=== PATIENT | male | born 1955 | race Caucasian/White ===

== ENCOUNTER 2023-09-09 07:45 | Observation (INO) ==
--- NOTE | 2023-07-31 11:08 | PAT Medication Instructions ---
Medication Instructions Date of Service July 31, 2023 Home Medications atorvastatin 20 mg tablet 20 mg PO QAM ergocalciferol (vitamin D2) 1,250 mcg (50,000 unit) capsule (Vitamin D2) 1,250 mcg PO WK hydrochlorothiazide 25 mg tablet 25 mg PO QAM levothyroxine 125 mcg tablet 125 mcg PO QAM magnesium 250 mg tablet 250 mg PO QAM omalizumab 300 mg/2 mL subcutaneous syringe (Xolair) 300 mg subcut MONTHLY pantoprazole 40 mg tablet,delayed release 40 mg PO QAM potassium chloride 20 mEq tablet,extended release(part/cryst) (Klor-Con M) 20 meq PO QAM ASK your prescriber and surgeon omalizumab 300 mg/2 mL subcutaneous syringe (Xolair) 300 mg subcut MONTHLY DO NOT take the morning of surgery ergocalciferol (vitamin D2) 1,250 mcg (50,000 unit) capsule (Vitamin D2) 1,250 mcg PO WK hydrochlorothiazide 25 mg tablet 25 mg PO QAM magnesium 250 mg tablet 250 mg PO QAM potassium chloride 20 mEq tablet,extended release(part/cryst) (Klor-Con M) 20 meq PO QAM Take morning of surgery With a small sip of water, OTHERWISE NOTHING TO EAT OR DRINK AFTER MIDNIGHT: atorvastatin 20 mg tablet 20 mg PO QAM levothyroxine 125 mcg tablet 125 mcg PO QAM pantoprazole 40 mg tablet,delayed release 40 mg PO QAM Other Notes If you have any questions please call us at [phone] or [phone] or [phone] or [phone]
--- NOTE | 2023-08-07 10:30 | Anesthesiology Consultation ---
Date of Service August 07, 2023 Assessment & Plan (1) Encounter for pre-operative examination: - Infectious disease screening: Per assessment on 08/07/23: No known infectious disease contacts or current infectious disease symptoms. No noted recent Covid positive test result. - Outpatient joint pathway: Per surgeon paperwork, plan for outpatient joint program. Patient seen at [facility] 08/07/23. Patient is an acceptable candidate to proceed as planned outpatient joint pathway pending perioperative course. Surgeon's office arranging post-op home management. - Patient acceptable risk for surgery pending surgeon-ordered PCP (Dr. Rufina Fagan, appt 08/13) and cardiology (Dr. Garcia/Gladis, appt 08/22) preop evaluations. Chart Review Chart Review: Patient seen in Pre Admission Testing Teaching & Discussion Pre-Anesthesia Teaching/Discussion Notes: Instructed NPO after midnight before surgery,except medications with 15 cc of water. Medication instructions provided according to the [facility] guidelines. History Surgery Operation Date: 09/09/23 09:10 Proposed Procedures p OP: Right Anterior Total Hip Replacement - Leoncio Escobar MD Height/Weight Height: 6 ft Weight: 95.1 kg Allergies Allergy/AdvReac Type Severity Reaction Status Date / Time No Known Allergies Allergy Verified 07/19/23 11:05 Medications Home Medications Medication Instructions Recorded Confirmed Last Taken atorvastatin 20 mg tablet 20 mg PO QAM 07/19/23 07/19/23 Unknown ergocalciferol (vitamin D2) 1,250 1,250 mcg PO WK 07/19/23 07/19/23 Unknown mcg (50,000 unit) capsule (Vitamin D2) hydrochlorothiazide 25 mg tablet 25 mg PO QAM 07/19/23 07/19/23 Unknown levothyroxine 125 mcg tablet 125 mcg PO QAM 07/19/23 07/19/23 Unknown magnesium 250 mg tablet 250 mg PO QAM 07/19/23 07/19/23 Unknown omalizumab 300 mg/2 mL 300 mg subcut MONTHLY 07/19/23 07/19/23 Unknown subcutaneous syringe (Xolair) pantoprazole 40 mg tablet,delayed 40 mg PO QAM 07/19/23 07/19/23 Unknown release potassium chloride 20 mEq 20 meq PO QAM 07/19/23 07/19/23 Unknown tablet,extended release(part/cryst) (Klor-Con M) Past Medical History Medical History Asthma Xolair injection monthly Barretts esophagus GERD (gastroesophageal reflux disease) Hx of colonic polyps Hx of squamous cell carcinoma (2020) Head Hyperlipidemia Hypertension Hypothyroidism Osteoarthritis Rheumatoid arthritis Hands - no meds Exercise / Class Metabolic Activity II 4-5 Yardwork/Stairs/Walk up hill (one FS: No CP, no SOB) Past Family History Family History Brother FHx: colon cancer, Onset Age: 61 FHx: esophageal cancer x2 brothers Other No family history of adverse response to anesthesia Past Surgical History Surgical History History of arthroscopy of left shoulder x2 History of arthroscopy of right shoulder x2 History of colonoscopy History of esophagogastroduodenoscopy (EGD) History of open reduction and internal fixation (ORIF) procedure right with hardware History of tonsillectomy Hx of squamous cell carcinoma excision (2020) S/P debridement right leg (post op infection) S/P hardware removal right leg S/P inguinal hernia repair right x3 Past Anesthesia History No Hx of Anesthesia Complications and No Family Hx of Anesthesia Complications History of PONV No Hx of PONV and No Hx of Motion Sickness Social History Smoking Status: Former smoker Do You Dip or Chew Tobacco: No Smoking End Date: Quit 1977 Hx Alcohol Use: No Hx Substance Use: No substance use type: does not use Review of Systems Patient denies chest pain, shortness of breath, dyspnea on exertion, fever, chills, cough, wheezing, palpitations. Physical Exam Vital Signs BP 133/81 P 65 TEMP 98.0 SP02 95%RA RESP 18 Physical Full cervical extension range of motion. Full TMJ range of motion. TMD 3.5 finger breaths Mallampati Score 2 Dentition: missing molars, + several upper veneers Lungs: clear throughout to auscultation Cardiac: regular rate and rhythm, no murmurs noted Spine: normal Carotid arteries: negative bruit Extremities: no LE edema Lab Results Anesthesia Preop Results Results Anesthesia Widget: WBC 10.38 K/ul (4.8-10.8) 08/07/23 Hgb 15.1 g/dl (14.0-18.0) 08/07/23 Hct 46.5 % (42.0-52.0) 08/07/23 Plt 295 K/uL (130-400) 08/07/23 Na 138 mmol/L (136-145) 08/07/23 K 4.5 mmol/L (3.5-5.1) 08/07/23 Cl 103 mmol/L (98-107) 08/07/23 CO2 27 mmol/L (21-32) 08/07/23 BUN 13 mg/dl (6-23) 08/07/23 Creat 0.90 mg/dl (0.6-1.4) 08/07/23 Glucose Level 101 mg/dl (70-99(Fasting)) H 08/07/23 PT 12.1 Seconds (9.0-12.0) H 08/07/23 PTT 30 Seconds (21-31) 08/07/23 INR 1.1 (0.9-1.1) 08/07/23 Urine Color Yellow 08/07/23 Urine Appearance Clear (Clear) 08/07/23 Urine pH 5.0 (4.5-7.5) 08/07/23 Urine Specific [place] 1.018 (1.000-1.030) 08/07/23 Urine Protein Negative (Negative) 08/07/23 Urine Glucose (UA) Negative (Negative) 08/07/23 Urine Ketones Negative (Negative) 08/07/23 Urine Blood Negative (Negative) 08/07/23 Urine Nitrite Negative (Negative) 08/07/23 Urine Bilirubin Negative (Negative) 08/07/23 Urine Urobilinogen Negative (Negative) 08/07/23 Urine Leukocyte Esterase Negative (Negative) 08/07/23 Blood Type AB Negative 08/07/23 Antibody Screen NEGATIVE 08/07/23 Testing Electrocardiogram Date: 08/07/23 SB at 57bpm. Chest X-Ray Date: 08/07/23 Findings: + NAD Echocardiogram Date: 11/27/22 EF 60-65%. Mild TR. Normal diastolic function.
--- NOTE | 2023-09-04 07:41 | History & Physical Report ---
Date of Service September 04, 2023 Assessment & Plan (1) Degenerative joint disease of right hip: Plan: Right total hip replacement direct anterior approach same-day surgery [facility] History of Present Illness Chief Complaint: Right hip pain Primary Care Provider: NO PCP Patient is a 68-year-old male with greater than 1 year history of right hip and low back pain. This is associated with decreased range of motion of the hip. He has trouble tying his shoe and sock. He has a positive limp and limited standing and walking tolerance. He has had a workup for spine and hip disease. There is a questionable history of osteoarthritis versus rheumatoid arthritis. He has tried and failed both intra-articular and sacroiliac injections. While he does have some spine disease radiographically and clinically the majority of his pain seems to radiate from his hip and groin. He is admitted at this time for elective hip replacement surgery patient has not limited nonsteroidal anti- inflammatories in the past because of questionable kidney disease but his BUN and creatinine are relatively normal. Allergies Allergy/AdvReac Type Severity Reaction Status Date / Time No Known Allergies Allergy Verified 07/19/23 11:05 Home Medications Medication Instructions Recorded Confirmed Type atorvastatin 20 mg tablet 20 mg PO QAM 07/19/23 07/19/23 History ergocalciferol (vitamin D2) 1,250 1,250 mcg PO WK 07/19/23 07/19/23 History mcg (50,000 unit) capsule (Vitamin D2) hydrochlorothiazide 25 mg tablet 25 mg PO QAM 07/19/23 07/19/23 History levothyroxine 125 mcg tablet 125 mcg PO QAM 07/19/23 07/19/23 History magnesium 250 mg tablet 250 mg PO QAM 07/19/23 07/19/23 History omalizumab 300 mg/2 mL 300 mg subcut MONTHLY 07/19/23 07/19/23 History subcutaneous syringe (Xolair) pantoprazole 40 mg tablet,delayed 40 mg PO QAM 07/19/23 07/19/23 History release potassium chloride 20 mEq 20 meq PO QAM 07/19/23 07/19/23 History tablet,extended release(part/cryst) (Klor-Con M) Past Med/Surg History Problem List (Updated 09/04/23 @ 07:41 by Leoncio Escobar MD) Degenerative joint disease of right hip Encounter for pre-operative examination Medical History Rheumatoid arthritis Hands - no meds Osteoarthritis Barretts esophagus Hx of colonic polyps Hx of squamous cell carcinoma (2020) Head Hypothyroidism GERD (gastroesophageal reflux disease) Hyperlipidemia Hypertension Asthma Xolair injection monthly Surgical History History of esophagogastroduodenoscopy (EGD) History of colonoscopy History of tonsillectomy Hx of squamous cell carcinoma excision (2020) S/P inguinal hernia repair right x3 S/P debridement right leg (post op infection) S/P hardware removal right leg History of open reduction and internal fixation (ORIF) procedure right with hardware History of arthroscopy of left shoulder x2 History of arthroscopy of right shoulder x2 Family History Brother FHx: colon cancer, Onset Age: 61 FHx: esophageal cancer x2 brothers Other No family history of adverse response to anesthesia Social History Smoking Status: Former smoker Tobacco Type: Cigarettes Smoking End Date: Quit 1977; Second Hand Exposure: No; Do You Dip or Chew Tobacco: No; Tobacco Cessation Education Requested by Patient: No Hx Alcohol Use: No Hx Substance Use: No Preferred Language: Ukrainian Communication Ability: Effective [employer] Pumper Required: No Beliefs That Will Affect Care: None Current Living Situation: Spouse Other Information That Helps Us Care for You: No Feels Safe at Home: Yes Safety Concerns: Feels Safe At This Time Assistive Devices: Glasses Assistive Devices Comment: partials - does not wear Review of Systems Review of Systems: Hip and groin pain Physical Exam Physical Exam: Weight 102 kg BMI 30 General: Well-nourished well-developed male who appears to be his stated age. HEENT: NCAT, EOMI, PERRLA. Neck: Negative bruits Heart: Regular rate and rhythm no murmurs Lungs: Breath sounds clear and present in all barroso Abdomen: Soft nontender bowel sounds positive Extremities: The right hip is 4 mm shorter than the left passive range of motion is 0 to 90 degrees flexion -15 degrees internal rotation which also reproduces groin pain. Neurological and vascular: Intact Results & Data Results & Data Vital Signs (Past 12 Hours) Blood pressure 122/80 Pulse 68
[2023-09-09] MEDS ORDERED: MEPIVACAINE HCL 1.5% 30 ML VIAL ONE (07:52)
[2023-09-09] MEDS: LR 60ML/HR IV SCH (08:31)
[2023-09-09] MEDS: ACETAMINOPHEN 500 MG TAB PO SCH (08:31)
[2023-09-09] MEDS: LR 500ML BOLUS, THEN 15ML/HR IV SCH (08:31)
[2023-09-09] MEDS: dexAMETHasone**PF** 10 MG/ML VIAL IV SCH (08:32)
[2023-09-09] MEDS: CeleBREX 200 MG CAP PO SCH (08:32)
[2023-09-09] MEDS: FAMOTIDINE 20 MG TAB PO SCH (08:32)
[2023-09-09] MEDS: GABAPENTIN 300 MG CAP PO SCH (08:32)
[2023-09-09] MEDS: traMADol HCL 50 MG TABLET PO SCH (08:33)
[2023-09-09] MEDS: METOCLOPRAMIDE HCL 10 MG TABLET PO SCH (08:33)
[2023-09-09] MEDS ORDERED: MIDAZOLAM HCL 1 MG/ML 2ML VIAL ONE ×2 (09:55→10:39)
[2023-09-09] MEDS ORDERED: fentaNYL citrate PF 100 MCG/2 ML VIAL ONE (09:55)
[2023-09-09] MEDS ORDERED: ONDANSETRON INJ 2 MG/ML 2 ML VIAL IV PRN (10:05)
[2023-09-09] MEDS ORDERED: PROMETHAZINE HCL 6.25 MG in SODIUM CHLORIDE 0.9% 50 ML IV PRN (10:05)
[2023-09-09] MEDS ORDERED: ePHEDrine sulfate 50 MG/ML AMP IV PRN (10:05)
[2023-09-09] MEDS ORDERED: ATROPINE SULFATE 0.1 MG/ML 10ML SYR IV PRN (10:05)
[2023-09-09] MEDS ORDERED: HYDROmorphone INJ 2 MG/ML SYR/VIAL IV PRN (10:05)
--- NOTE | 2023-09-09 10:37 | History & Physical Bridge Note ---
Date of Service September 09, 2023 History & Physical Bridge Note I have examined the patient, reviewed the History & Physical and in the interval since the performance of the History & Physical I have noted the following changes of clinical significance: no changes noted
[2023-09-09] MEDS: TRANEXAMIC ACID 1,000 MG **IV Pre-op IV SCH (11:08)
[2023-09-09] MEDS ORDERED: PROPOFOL IV EMULSION 10 MG/ML 20 ML VIAL IV ONE ×4 (11:22→11:25)
[2023-09-09] MEDS: ceFAZolin 2000MG 2,000 MG/15 ML SYR IV SCH (11:33)
[2023-09-09] MEDS ORDERED: ePHEDrine sulfate 50 MG/ML AMP ONE (11:53)
[2023-09-09] MEDS: ORTHO JOINT ANESTHETIC ONE (12:05)
[2023-09-09] MEDS ORDERED: PHENYLEPHRINE 100MCG/ML 10ML SYR IV ONE (12:09)
[2023-09-09] MEDS ORDERED: KETOROLAC 30 MG/ML VIAL ONE (12:25)
[2023-09-09] MEDS: TRANEXAMIC ACID 1,000 MG **IV Intra-op IV SCH (12:25)
[2023-09-09] MEDS: ROPIV 0.5% 246mg, Ketorolac 30mg, EPINEPHrine 0.5mg in NSS INFIL SCH (12:30)
--- NOTE | 2023-09-09 12:33 | Post Operative Brief Note ---
Immediate Post Op Note Date of Surgery September 09, 2023 Pre & Post Diagnosis Operation Date: 09/09/23 10:20 Pre-Op Diagnosis: Degenerative joint disease of right hip Post-Op Diagnosis: Degenerative joint disease of right hip I identified the patient and participated in the time-out.: Yes Procedure Operation Date: 09/09/23 10:20 Actual Procedures p Right Anterior Total Hip Replacement(Right) - Leoncio Escobar MD Surgeon Leoncio Escobar MD Practice Architect Kelvin Amato PAAngela Estimated Blood Loss 50 Findings Consistent with Post-Op Diagnosis
--- NOTE | 2023-09-09 12:48 | Fluoroscopy Report ---
FL hip RT 1V CLINICAL HISTORY: RIGHT ANTERIOR HIP COMPARISON STUDY: None. FLUOROSCOPY TIME: 8 FLUOROSCOPY IMAGES: 1 Ka,r: 1.1 mGy FINDINGS: There is a right total hip arthroplasty. The hardware appears intact. No acute fracture or dislocation. IMPRESSION: Fluoroscopic assistance as above. ACT 112: Negative or not required by law. Electronically signed by: Dilan Araya M.D. 09/09/2023 12:47 PM
[2023-09-09] MEDS: fentaNYL citrate PF 100 MCG/2 ML VIAL IV PRN (13:05)
[2023-09-09] MEDS: traMADol HCL 50 MG TABLET PO PRN (14:39)
--- NOTE | 2023-09-09 14:41 | Operative Report ---
Post Operative Report Pre & Post Diagnosis Operation Date: 09/09/23 10:20 Pre-Op Diagnosis: Degenerative joint disease of right hip Post-Op Diagnosis: Degenerative joint disease of right hip I identified the patient and participated in the time-out.: Yes Procedure Operation Date: 09/09/23 10:20 Actual Procedures p Right Anterior Total Hip Replacement(Right) - Leoncio Escobar MD Surgeon Leoncio Escobar MD Photographic Enlarger Operator Kelvin Amato PA-C Estimated Blood Loss 50 Findings Consistent with Post-Op Diagnosis Significant degenerative changes with loss of weightbearing articular cartilage Specimens femoral head osteophytic fragments and capsular tissue Complications none Indications components used: [employer] a fit system: Acetabulum size 52 with 25 mm dome screw and 36 mm highly cross-linked polyethylene liner. Femur size 10 standard offset neck with +436 mm Oxinium head Description of Procedure following satisfactory spinal anesthesia the patient was supine on the operating room table. The right leg was placed in the traction and device in the left leg in the well-leg hernandez. Positioning was confirmed with fluoroscopy. The leg was prepared with ChloraPrep and draped sterilely. A surgical timeout was performed. An anterior approach was performed in the interval between the sartorius and tensor muscles. The circumflex femoral vessels were identified and coagulated. An anterior capsulotomy was performed exposing the arthritic femoral neck and head. Fluoroscopy was used to confirm femoral neck resection level which was completed and the arthritic femoral head was removed. The acetabular self-retaining retractor was placed. Acetabular preparation was completed with excision of labral and some capsular tissue. The acetabulum was reamed under direct vision. A 52 shell was impacted into a healthy bed in a position of 35 to 40 degrees of abduction and 25 degrees of anteversion position confirmed with fluoroscopy. A dome screw was placed followed by the polyethyl kathy liner. A moderate-sized inferior osteophyte was removed. Local anesthetic was placed and the wound was irrigated. Femur was placed into a position of external rotation extension and adduction. Femoral canal was identified and the femur was prepared up to a size 10. A trial reduction with a standard offset neck and a +436 mm head trial was performed. Fluoroscopy showed good fit and fill of the proximal canal and very good orientation of the components. Leg length and offset were restored at the level of the lesser trochanter. The hip was dislocated. The trial components removed. Local anesthetic was placed. After irrigation the final permanent implant stem head complex of the same size was placed and the hip reduced. Fluoroscopy showed very similar findings. There was very little bleeding. The wound was irrigated with 500 cc of experience irrigation. The tensor fascia was closed with a running suture of 0 strata fix as well as the deeper subcutaneous fat layer. The most superficial layer was closed with 3 oh strata fix. Dermabond Prineo and a negative pressure wound dressing were applied. The patient was returned to his bed in stable condition. Note: Kelvin DOMINGUEZ was present and assisted throughout due to the complicated nature of this case. He help with preparation and set up, he assistant housekeeping manager throughout. He assisted with hemostasis and exposure throughout the procedure. He also closed the fascial subcutaneous and skin layers and applied the postop dressing. I attest to the content of the Intraoperative Record and any orders documented therein. Any exceptions are noted below.
--- NOTE | 2023-09-09 15:17 | Anesthesiology Progress Note ---
Date of Service September 09, 2023 Anesthesia Post Procedure Vital Signs Vital Signs: Temp Pulse Resp BP Pulse Ox O2 Del Method O2 Flow Rate 09/09/23 14:35 36.6 C 100 H 19 120/80 96 Room Air 09/09/23 14:05 36.6 C 100 H 18 120/84 93 Room Air 09/09/23 13:55 36.5 C 94 H 17 124/92 95 Room Air 0 09/09/23 13:45 36.5 C 98 H 14 143/86 H 95 Room Air 0 09/09/23 13:35 36.5 C 91 H 13 128/82 95 Room Air 0 09/09/23 13:25 95 H 19 135/79 96 Oxymask 3 09/09/23 13:15 75 12 123/74 98 Oxymask 3 09/09/23 13:05 87 13 129/74 98 Oxymask 5 09/09/23 12:55 36.2 C L 95 H 19 128/73 95 Oxymask 5 09/09/23 08:18 36.7 C 74 20 175/103 H 99 Room Air Pain Intensity Right Hip: Pain Intensity: 6 Transfer of Care Handoff Completed per policy Notes Mental Status: alert / awake / arousable and participated in evaluation Nausea / Vomiting: adequately controlled Pain: adequately controlled Airway Patency, RR, SpO2: stable & adequate BP & HR: stable & adequate Hydration State: stable & adequate Neuraxial Anesthesia: was administered and sensory block is resolving Anesthetic Complications: no major complications apparent and Pt Satisfied with anesthetic care
[2023-09-09] MEDS: KETOROLAC 30 MG/ML VIAL IV ONE (16:24)
[2023-09-09] MEDS: oxyCODONE HCL IR 5 MG TAB (IMMEDIATE RELEASE) PO PRN (18:17)
[2023-09-09] MEDS: oxyCODONE HCL IR 5 MG TAB (IMMEDIATE RELEASE) ONE (18:17)
[2023-09-09] MEDS ORDERED: oxyCODONE HCL IR 5 MG TAB (IMMEDIATE RELEASE) PO PRN (18:18)
[2023-09-09] MEDS: KETOROLAC 30 MG/ML VIAL ONE (18:20)
[2023-09-09] MEDS: ceFAZolin 2000MG 2,000 MG/15 ML SYR IV ONE (19:34)
[2023-09-09] MEDS: ACETAMINOPHEN 500 MG TAB PO PRN (22:10)
[2023-09-09] MEDS: ASPIRIN 81 MG ECTAB PO SCH (22:11)
--- NOTE | 2023-09-10 07:40 | Orthopedic Progress Note ---
Date of Service September 10, 2023 Assessment & Plan (1) Degenerative joint disease of right hip: Plan: Postop day 1 status post right total hip arthroplasty direct anterior PT/OT protocols. Weightbearing as tolerated. No flexion strengthening at this point in time. DVT prophylaxis-aspirin p.o. twice daily, SCDs. Pain management as written. DC planning-patient is planning for discharge to home today after physical therapy with home health services. Plan for discharge home today. Admission and Anticipated Discharge Date Admission Date: September 09, 2023 Subjective POD 1 Pt sitting up in bed. Awake and alert. Pt admitted due to pain control issues prior to outpt dc. This morning the patient is doing quite well. His pain is controlled. He states that he feels it was secondary to some swelling in his thigh of which she notes has also gone down. No other complaints this morning. Patient feels well. He is hoping to go home today. Physical Exam Physical Exam: Dressings are clean, dry, and intact. Thigh with mild swelling but soft and nontender. Calves are soft nontender. Neurovascular appears intact. There is no gross motor or sensory loss seen at this time. Leg lengths appear equal. Results & Data Vital Signs (Past 12 Hours) Vital Signs Temp Pulse Resp BP Pulse Ox O2 Del Method 09/10/23 04:00 36.5 C 74 18 129/69 98 Room Air 09/09/23 22:47 36.6 C 79 18 120/67 96 Room Air
== END 2023-09-10 10:35 | disposition home health service (06) ==
LOC: 3E 07:45 → ASU 07:45